=== PATIENT | female | born 1975 | race Caucasian/White ===

== ENCOUNTER 2017-03-17 17:04 | Emergency (ER) | payer OTHER, SELFPAY ==
[2017-03-17] MEDS ORDERED: Donnatal Elixir 16.2 MG/5 ML UDCUP ONE (17:58)
[2017-03-17] MEDS ORDERED: Lidocaine Viscous Sol 2% 15 ml UD Cup ONE (17:59)
[2017-03-17] MEDS ORDERED: Mag-Al Plus 1200 MG/1200 MG/120 MG/30 ML UDCUP ONE (17:59)
[2017-03-17] MEDS ORDERED: Ondansetron ODT 4 MG TAB ONE ×2 (18:09→21:53)
[2017-03-17] MEDS ORDERED: Morphine Sulfate 2 MG/ML SYRINGE ONE (18:09)
[2017-03-17] MEDS ORDERED: diphenhydrAMINE HCl 25 MG CAP ONE (18:12)
--- NOTE | 2017-03-17 18:22 | RAD ---
ONE VIEW CHEST: History: Severe epigastric pain. Comparison: None. FINDINGS: Portable upright chest. Normal cardiac silhouette. The lungs and pleural spaces are clear. No pneumo thorax or osseous abnormalities. IMPRESSION: No acute cardiopulmonary process. POS: [facility]
[2017-03-17] MEDS ORDERED: Sodium Chloride 0.9% 1,000 ML BAG ONE (19:00)
[2017-03-17 19:05] LABS: #Basophils 0.1 thou/uL (0.0-0.2); #Eosinphils 0.1 thou/uL (0.0-0.7); #Lymphocytes 1.4 thou/uL (1.20-3.40); #Monocytes 0.4 thou/uL (0.11-0.59); #Neutrophils 5.3 thou/uL (1.40-6.50); %Basophils 0.8 % (0.0-1.0); %Eosinophils 0.8 % (0.0-10.0); %Lymphocytes 19.7 % (21.0-51.0); %Monocytes 5.4 % (0.0-10.0); %Neutrophils 73.4 % (42.0-75.0); Hemoglobin 12.7 g/dL (12.0-16.0); Mean Corpuscular HGB CONC 33.9 g/dL (32.0-36.0); Mean Corpuscular Hemoglobin 29.5 pg (27.0-31.0); Mean Corpuscular Volume 87.2 fl (81.0-99.0); Mean Platelet Volume 7.3 fL (7.4-10.4); Platelet Count 230 thou/uL (130-400); RBC Distribution Width 13.1 % (11.5-14.5); Red Blood Cell (RBC) Count 4.29 mill/uL (4.20-5.40); White Blood Cell (WBC) Count 7.2 thou/uL (4.8-10.8)
[2017-03-17] MEDS ORDERED: Pantoprazole 40 MG VIAL ONE (19:10)
[2017-03-17 19:23] LABS: ALT (SGPT) 15 U/L (8-55); AST (SGOT) 12 U/L (5-34); Acetaminophen Less than 6.0 mcg/mL (10.0-30.0); Albumin 4.8 g/dL (3.5-5.0); Alcohol Less than 10 mg/dL (Less than 10); Alkaline Phosphatase 92 U/L (40-150); Anion Gap 22 mmol/L (10-20); BUN (Urea Nitrogen) 24 mg/dL (7.0-18.7); Bilirubin, Total 0.5 mg/dL (0.2-1.2); Calc. Creatinine Clearance 0 mL/min (70-130); Calcium 10.4 mg/dL (7.8-10.44); Carbon Dioxide 19 mmol/L (22-29); Chloride 103 mmol/L (98-107); Estimated GFR-MDRD 33; Glucose 314 mg/dL (70-105); Lipase 30 U/L (8-78); Protein, Total 8.8 g/dL (6.0-8.3); Salicylate Less than 8.0 mg/dL (15.0-30.0); Sodium 140 mmol/L (136-145)
[2017-03-17] MEDS ORDERED: Iopamidol 370 76% 100 ML VIAL ONE (20:00)
[2017-03-17] MEDS ORDERED: Lorazepam 2 MG/ML VIAL ONE (20:16)
[2017-03-17] MEDS ORDERED: Insulin Regular 300 UNITS/3 ML VIAL ONE (21:27)
[2017-03-17 22:01] LABS: Amphetamine Not Detected (NotDetected); Barbiturates Screen Not Detected (NotDetected); Benzodiazepine Screen Not Detected (NotDetected); Cocaine Metabolite Screen Unable to Interpret (NotDetected); Medtox Control Line Valid? VALID (VALID); Methadone Not Detected (NotDetected); Methamphetamine Unable to Interpret (NotDetected); Opiate Screen Detected (NotDetected); Oxycodone Screen Not Detected (NotDetected); Phencyclidine (PCP) Unable to Interprete (NotDetected); THC/Cannabinoid Screen Unable to Interprete (NotDetected); Tricyclic Screen Not Detected (NotDetected)
[2017-03-17 22:01] LABS: Bilirubin Negative (Negative); Blood, Urine Negative (Negative); Clarity Clear (Clear); Glucose, Urine (Dipstick) 500 mg/dL (Negative); Leukocyte Negative (Negative); Nitrite Negative (Negative); Protein, Urine (Dipstick) 30 mg/dL (Neg-Trace); Specific Gravity, Urine 1.025 (1.005-1.030); Urobilinogen 0.2 mg/dL (0.2-1.0); pH, Urine 5.5 (5.0-9.0)
[2017-03-17 22:02] LABS: Bacteria/HPF Rare-Few HPF (None Seen); RBC/HPF 0-3 HPF (0-3)
--- NOTE | 2017-03-18 00:59 | CT ---
EXAM: ABDOMEN CT WITH CONTRAST PELVIC CT WITH CONTRAST HISTORY: Abdominal pain. COMPARISON: None. TECHNIQUE: Abdomen and pelvic CT performed with IV and oral contrast. Coronal reformatted images are submitted for interpretation. FINDINGS: ABDOMEN CT: Minimal ground glass opacities and linear opacities at the lung bases, nonspecific. Heart size is n ormal. No significant pericardial fluid. Descending thoracic aorta and abdominal aorta have a norm al caliber. No periaortic fat stranding. No gastrohepatic, retrocrural, or periportal lymphadenopathy. Gallbladder is surgically absent. Intra- and extrahepatic portal vein is patent. Symmetric attenuation of the psoas muscles. Liver, spleen, pancreas, and adrenal glands have appropriate enhancement. Gastric mucosa, duodenum, and multiple normal caliber small bowel loops are noted. Ileocecal juncti on is normal. Normal caliber appendix. Scattered fecal material in a nondistended, nondilated colo n. Minimal diverticulosis in the sigmoid colon. There appears to be atrophy of the left kidney, likely chronic. No evidence of obstructive uropathy bilaterally. No mesenteric mass, lymphadenopathy, free air, or free fluid. There are a few scattered nonspecific periaortic lymph nodes. PELVIC CT: Uterus is unremarkable. There are hypodensities in the left and right adnexa measuring 1.5 x 1.8 cm , respectively. Bilateral ovarian follicles are favored. Urinary bladder is decompressed No pelvi c mass, lymphadenopathy, free air, or free fluid. No osteoblastic or osteolytic lesions. IMPRESSION: 1. Normal caliber appendix. 2. Minimal diverticulosis in the sigmoid colon. No diverticulitis. 3. Bilateral adnexal hyperdensities, presumed to be ovarian follicles. 4. 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 POS: [facility]
[2017-03-18] MEDS ORDERED: Lorazepam 2 MG/ML VIAL ONE (01:03)
== END 2017-03-18 01:25 | disposition short-term general hospital (02) ==
LOC: MADERS 17:04
DX: R10.13 Epigastric pain (principal); I10 Essential (primary) hypertension; E10.9 Type 1 diabetes mellitus without complications; F31.9 Bipolar disorder, unspecified; Z79.899 Other long term (current) drug therapy
CPT/HCPCS: 36415; 36416; 71010; 74177; 80053; 80306; 80307; 81001; 82150; 83690; 85025; 87086; 96361; 96372; 96374; 96375; 96376; A4216; C9113; J1815; J2060; J2270; J7050; Q0162